=== PATIENT | male | born 1965 | race African-American/Black ===

== ENCOUNTER 2020-10-01 13:16 | Emergency (ER) | payer OTHER ==
[~2020-10-01] VITALS: Ht 167.6 cm; Wt 72.7 kg
[2020-10-01 14:07] LABS: HEMATOCRIT 42.9 % (39.0-50.0); HEMOGLOBIN 14.6 g/dl (14.0-18.0); IMMATURE GRANULOCYTES 0.2 % (0.0-5.0); MEAN CELL VOLUME 81.1 fL CALC (80.0-100.0); MEAN CORPUSCULAR HGB 27.6 pG CALC (26.0-32.0); NEUT# 4.47 thou/uL (1.82-7.42); RED BLOOD COUNT 5.29 mill/uL (4.70-6.10); RED CELL DISTRI WIDTH 13.2 % (11.5-15.5)
[2020-10-01 14:29] LABS: ALBUMIN 4.2 g/dL (3.2-5.0); ALKALINE PHOSPHATASE 55 u/l (38-126); BILIRUBIN, TOTAL 0.6 mg/dL (0.0-1.4); BUN 11 mg/dL (9-20); BUN/CREATININE RATIO 11 (12-20 (CALC)); CARBON DIOXIDE 27 mmol/l (22-30); CHLORIDE 104 mmol/l (95-108); ETHYL ALCOHOL 0 mg/dl (0-30); GFR > 60 ML/MIN (>=60 (CALC)); GFR FOR AFR.AMER. > 60 ML/MIN (>=60 (CALC)); LIPASE 100 u/l (23-300); SGOT/AST 30 u/l (17-59); SODIUM 137 mmol/l (137-146); TOTAL PROTEIN 7.7 g/dL (6.3-8.2)
[2020-10-01 14:30] LABS: ANION GAP 11 (6-22 (CALC)); POTASSIUM 4.5 mmol/l (3.5-5.1)
[2020-10-01 14:31] LABS: ACT PARTIAL THROMBO TIME 21.7 SECONDS (20.0-32.5); INTERNATIONAL NORMALIZED RATIO 1.1 RATIO (0.7-1.3); PROTHROMBIN TIME 10.7 SECONDS (9.0-12.5)
[2020-10-01 14:40] LABS: MYOGLOBIN 35 ng/mL (0 - 121)
[2020-10-01 16:13] LABS: URINE BILIRUBIN - DIPSTICK NEGATIVE (NEGATIVE); URINE BLOOD DIPSTICK NEGATIVE (NEGATIVE); URINE COLOR YELLOW; URINE GLUCOSE - DIPSTICK NEGATIVE (NEGATIVE); URINE KETONE NEGATIVE (NEGATIVE); URINE LEUK ESTERASE NEGATIVE (NEGATIVE); URINE NITRITE - DIPSTICK NEGATIVE (Negative); URINE PROTEIN - DIPSTICK NEGATIVE (NEG-TRACE); URINE SPECIFIC GRAVITY 1.015; URINE UROBILINOGEN - DIPSTICK 0.2 E.U./dL (0.2)
[2020-10-01] MEDS ORDERED: MECLIZINE25 MG PO (18:32)
[2020-10-01 18:43] VITALS: BP 147/79
== END 2020-10-01 19:04 | DRG 149 ==
LOC: ED 13:16
DX: R42 Dizziness and giddiness (principal); Z20.828 Contact with and (suspected) exposure to other viral communicable diseases
CPT/HCPCS: Q9967